=== PATIENT | female | born 1955 | race African-American/Black ===

== ENCOUNTER 2019-01-23 11:44 | Emergency (ER) | payer OTHER, MEDICAID ==
[~2019-01-23] VITALS: Ht 160 cm; Wt 57.0 kg
[2019-01-23 14:29] LABS: BASOPHILS % 0.7 % (0.0-2.0); EOSINOPHILS % 2.5 % (0.0-5.0); HEMATOCRIT. 28.2 % (36.0-48.0); HEMOGLOBIN. 9.1 g/dL (12.0-16.0); LYMPHOCYTES % 22.8 % (20.0-50.0); MEAN CORPUSCULAR HEMOGLOBIN 24.1 pg (28.0-32.0); MEAN PLATELET VOLUME 7.9 fl (7.4-10.4); MONOCYTES % 6.2 % (2.0-8.0); NEUTROPHILS % 67.8 % (40.0-76.0); PLATELET 301 x1000/uL (130-400); RED BLOOD CELL COUNT 3.76 mill/uL (4.2-5.4); RED CELL DISTRIBUTION WIDTH 19.2 % (11.6-14.6)
[2019-01-23 14:36] LABS: CHLORIDE 107 mEq/L (98-107)
[2019-01-23 15:57] VITALS: BP 124/80
== END 2019-01-23 16:02 | disposition home or self-care (01) ==
LOC: ER 11:44
DX: D50.9 Iron deficiency anemia, unspecified (principal); N28.9 Disorder of kidney and ureter, unspecified; I10 Essential (primary) hypertension; M79.7 Fibromyalgia; F12.10 Cannabis abuse, uncomplicated; Z87.891 Personal history of nicotine dependence
CPT/HCPCS: 36415; 86850; 86900; 99283

== ENCOUNTER 2019-09-04 13:10 | Emergency (ER) | payer OTHER, MEDICAID ==
[~2019-09-04] VITALS: Ht 162.6 cm; Wt 53.0 kg
[2019-09-04] MEDS ORDERED: IBUPROFEN 600MG TABLET PO ONE (14:45)
[2019-09-04 16:20] VITALS: BP 158/94
== END 2019-09-04 16:30 | disposition home or self-care (01) ==
LOC: ER 13:10
DX: S46.812A Strain of other muscles, fascia and tendons at shoulder and upper arm level, left arm, initial encounter (principal); M54.16 Radiculopathy, lumbar region; I10 Essential (primary) hypertension; G43.909 Migraine, unspecified, not intractable, without status migrainosus; M79.7 Fibromyalgia; F12.10 Cannabis abuse, uncomplicated; Z87.19 Personal history of other diseases of the digestive system; V43.52XA Car driver injured in collision with other type car in traffic accident, initial encounter; Y93.89 Activity, other specified; Y92.488 Other paved roadways as the place of occurrence of the external cause
CPT/HCPCS: 72100; 99283

== ENCOUNTER 2020-11-18 21:31 | Emergency (ER) | payer OTHER, MEDICAID ==
[~2020-11-18] VITALS: Ht 162.6 cm; Wt 57.0 kg
[2020-11-18 23:09] VITALS: BP 181/108
== END 2020-11-18 23:37 | disposition home or self-care (01) ==
LOC: ER 21:31
DX: I10 Essential (primary) hypertension (principal); R73.03 Prediabetes; E78.00 Pure hypercholesterolemia, unspecified; M79.7 Fibromyalgia
CPT/HCPCS: 99281

== ENCOUNTER 2024-06-06 02:15 | Emergency (ER) | payer BC, MEDICAID ==
[~2024-06-06] VITALS: Ht 165.1 cm; Wt 72.0 kg
[~2024-06-06 02:15] MED LIST: ASPI-1406 PO; CHOL400D7 PO; CLOP-31 PO; LIP40 PO; OMEP20CA14 MT; VALS160T28 MT
[2024-06-06 02:19] VITALS: TEMP 37; O2SAT 99
[2024-06-06 06:54] VITALS: TEMP 98.6
[2024-06-06] MEDS: ACETAMINOPHEN 325MG TABLET PO STA (06:54)
[2024-06-06] MEDS ORDERED: ACET-2708 MT (08:41)
[2024-06-06] MEDS ORDERED: GABA-1180 PO (08:41)
[2024-06-06 09:17] VITALS: BP 120/70; PULSE 69; RESP 17; O2SAT 98
== END 2024-06-06 09:46 | disposition home or self-care (01) ==
LOC: ER 02:15
DX: M54.32 Sciatica, left side (principal); F12.10 Cannabis abuse, uncomplicated; I10 Essential (primary) hypertension; E11.9 Type 2 diabetes mellitus without complications
CPT/HCPCS: 93970; 99284